=== PATIENT | male | born 2005 | race Caucasian/White ===

== ENCOUNTER 2024-11-26 00:41 | Emergency (ER) | payer OTHER ==
[2024-11-26 01:02] VITALS: BP 131/65; PULSE 65; RESP 18; TEMP 98.2; BMI 18.7
== END 2024-11-26 01:37 | disposition home or self-care (01) ==
LOC: JER 00:41
DX: S05.11XA Contusion of eyeball and orbital tissues, right eye, initial encounter (principal); S05.12XA Contusion of eyeball and orbital tissues, left eye, initial encounter; Y04.0XXA Assault by unarmed brawl or fight, initial encounter; Y93.71 Activity, boxing
CPT/HCPCS: 99283-25